=== PATIENT | male | born 1990 | race Caucasian/White ===

== ENCOUNTER → 2018-08-02 | Emergency (ER) | payer OTHER ==
[2018-08-02 02:10] LABS: ABS Basophils 0 10^3/ul (0-0.2); ABS Eosinophils 0.1 10^3/ul (0-0.6); ABS Lymphocytes 1.9 10^3/ul (1.0-4.8); ABS Monocytes 1.1 10^3/ul (0-0.8); ABS Neutrophils 6.6 10^3/ul (1.5-7.7); ABS Nucleated RBC 0 10^3/ul; Hematocrit 47 % (42-52); Hemoglobin 16.6 g/dl (14.0-18.0); Lymphocyte % 19.9 % (25-47); Mean Corpuscular HGB Conc 35 g/dl (31-36); Mean Corpuscular Hemoglobin 31 pg (27-31); Mean Corpuscular Volume 88 fL (80-94); Nucleated Red Blood Cells % 0.1; Platelet Count 273 10^3/ul (150-450); Red Blood Count 5.37 10^6/ul (4.00-5.40); Red Cell Distribution Width 13 % (10.5-15); White Blood Count 9.7 10^3/ul (3.5-10.8)
[2018-08-02 02:26] LABS: EGFR Non-African American 84.7 (>60)
[2018-08-02 03:04] VITALS: BP 138/82
--- NOTE | 2018-08-02 03:04 | ED ---
HPI Cardiac - HPI Summary HPI Summary: Patient is a 28 y/o M w/ c/o palpitations for 30 minutes onsetting tonight [employer]. He reports this is first time experiencing these Sx, denies N/V. He reports Hx of anxiety. Patient reports he was lying in bed when Sx onset. He notes he has been experiencing anxiety about school. In room, pulse is 83, BP is 135/80. In the room, he states he is still experiencing chest palpitations and also notes a "burning feeling" in LLQ. Patient reports that he took lorazepam, 2 tabs of 1 mg less than 30 minutes ago and experienced some slight relief from medication. On triage, associated severity is rated 7/10 and nothing is noted to aggravate/ alleviate Sx. Patient also takes 20mg BID for ADHD. Home medications and allergies reviewed. - History of Current Complaint Chief Complaint: EDDysrhythmPalp Stated Complaint: HEART PALPATATIONS/CHEST DISCOMFORT Time Seen by Provider: 08/02/18 01:36 Hx Obtained From: Patient Onset/Duration: Still Present Timing: Constant - palpitations is still present Current Severity: Severe - 7/10 Pain Intensity: 7 Pain Scale Used: 0-10 Numeric - 7/10 Aggravating Factor(s): Nothing Alleviating Factor(s): OTC Meds - lorazepam Associated Signs and Symptoms: Positive: Anxiety, Palpitations, Abdominal Pain - LLQ "burning feeling". Negative: Nausea, Vomiting - Allergy/Home Medications Allergies/Adverse Reactions: Allergies Allergy/AdvReac Type Severity Reaction Status Date / Time No Known Allergies Allergy Verified 08/02/18 01:17 PMH/Surg Hx/FS Hx/Imm Hx Sensory History: Denies: Hx Legally Blind, Hx Deafness Opthamlomology History: Denies: Hx Legally Blind EENT History: Denies: Hx Deafness Infectious Disease History: No Infectious Disease History: Denies: Traveled Outside the [place] in Last 30 Days - Family History Known Family History: Negative: Blood Disorder - Social History Alcohol Use: Occasionally Substance Use Type: Reports: None Smoking Status (MU): Never Smoked Tobacco Review of Systems Positive: Palpitations Positive: Abdominal Pain - LLQ "burning feeling" . Negative: Vomiting, Nausea Positive: Anxious All Other Systems Reviewed And Are Negative: Yes Physical Exam - Summary Physical Exam Summary: VITAL SIGNS: Reviewed. GENERAL: Patient is a well-developed and nourished male who is lying comfortable in the stretcher. Patient is not in any acute respiratory distress. He is anxious appearing in the room. HEAD AND FACE: No signs of trauma. No ecchymosis, hematomas or skull depressions. No sinus tenderness. EYES: PERRLA, EOMI x 2, No injected conjunctiva, no nystagmus. EARS: Hearing grossly intact. Ear canals and tympanic membranes are within normal limits. MOUTH: Oropharynx within normal limits. NECK: Supple, trachea is midline, no adenopathy, no JVD, no carotid bruit, no c- spine tenderness, neck with full ROM. CHEST: Symmetric, no tenderness at palpation LUNGS: Clear to auscultation bilaterally. No wheezing or crackles. CVS: Regular rate and rhythm, S1 and S2 present, no murmurs or gallops appreciated. ABDOMEN: Soft, non-tender. No signs of distention. No rebound no guarding, and no masses palpated. Bowel sounds are normal. EXTREMITIES: FROM in all major joints, no edema, no cyanosis or clubbing. NEURO: Alert and oriented x 3. No acute neurological deficits. Speech is normal and follows commands. SKIN: Dry and warm Triage Information Reviewed: Yes Vital Signs On Initial Exam: Initial Vitals Temp Pulse Resp BP Pulse Ox 97.3 F 81 16 145/90 100 08/02/18 01:17 08/02/18 01:17 08/02/18 01:17 08/02/18 01:17 08/02/18 01:17 Vital Signs Reviewed: Yes Diagnostics - Vital Signs Vital Signs Temp Pulse Resp BP Pulse Ox 08/02/18 02:00 93 100 08/02/18 01:38 78 15 135/80 99 08/02/18 01:37 76 17 99 08/02/18 01:17 97.3 F 81 16 145/90 100 - Laboratory Lab Results: Lab Results 08/02/18 08/02/18 Range/Units 01:51 01:51 WBC 9.7 (3.5-10.8) 10^3/ul RBC 5.37 (4.00-5.40) 10^6/ul Hgb 16.6 (14.0-18.0) g/dl Hct 47 (42-52) % MCV 88 (80-94) fL MCH 31 (27-31) pg MCHC 35 (31-36) g/dl RDW 13 (10.5-15) % Plt Count 273 (150-450) 10^3/ul MPV 8.0 (7.4-10.4) um3 Neut % (Auto) 68.0 (38-83) % Lymph % (Auto) 19.9 L (25-47) % Lipscomb % (Auto) 10.9 H (0-7) % Eos % (Auto) 1.0 (0-6) % Baso % (Auto) 0.2 (0-2) % Absolute Neuts (auto) 6.6 (1.5-7.7) 10^3/ul Absolute Lymphs (auto) 1.9 (1.0-4.8) 10^3/ul Absolute Monos (auto) 1.1 H (0-0.8) 10^3/ul Absolute Eos (auto) 0.1 (0-0.6) 10^3/ul Absolute Basos (auto) 0 (0-0.2) 10^3/ul Absolute Nucleated RBC 0 10^3/ul Nucleated RBC % 0.1 Sodium 137 (135-145) mmol/L Potassium 3.6 (3.5-5.0) mmol/L Chloride 101 (101-111) mmol/L Carbon Dioxide 29 (22-32) mmol/L Anion Gap 7 (2-11) mmol/L BUN 16 (6-24) mg/dL Creatinine 1.05 (0.67-1.17) mg/dL Est GFR ( Amer) 102.5 (>60) Est GFR (Non-Af Amer) 84.7 (>60) BUN/Creatinine Ratio 15.2 (8-20) Glucose 109 H (70-100) mg/dL Calcium 9.6 (8.6-10.3) mg/dL Magnesium 2.1 (1.9-2.7) mg/dL Total Bilirubin 0.70 (0.2-1.0) mg/dL AST 42 H (13-39) U/L ALT 36 (7-52) U/L Alkaline Phosphatase 54 (34-104) U/L Troponin I 0.00 (<0.04) ng/mL Total Protein 6.4 (6.4-8.9) g/dL Albumin 4.5 (3.2-5.2) g/dL Globulin 1.9 L (2-4) g/dL Albumin/Globulin Ratio 2.4 (1-3) TSH 2.27 (0.34-5.60) mcIU/mL Result Diagrams: 08/02/18 01:51 08/02/18 01:51 Lab Statement: Any lab studies that have been ordered have been reviewed, and results considered in the medical decision making process. - EKG 0208 Cardiac Rate: NL - rate of 86 BPM EKG Rhythm: Sinus Rhythm EKG Interpretation: Normal axis. Normal interval. No ischemic changes. Re-Evaluation - Re-Evaluation First Eval Re-Evaluation Time: 02:58 Comment: Discussed EKG and labs with patient. Patient will be discharged to home and follow up with PCP in 1-2 days. He is agreeable with this plan. Disposition - Course Assessment/Plan: Patient is a 28 y/o M w/ c/o palpitations for 30 minutes onsetting tonight [employer]. He reports this is first time experiencing these Sx, denies N/V. He reports Hx of anxiety. Patient reports he was lying in bed when Sx onset. He notes he has been experiencing anxiety about school. In room, pulse is 83, BP is 135/80. In the room, he states he is still experiencing chest palpitations and also notes a "burning feeling" in LLQ. Patient reports that he took lorazepam, 2 tabs of 1 mg less than 30 minutes ago and experienced some slight relief from medication. On physical exam, patient is noted to be anxious-appearing with no other abnormal findings. EKG showed no abnormal findings. Labs showed 109 glucose, AST 42, and globulin 1.9. Patient will be discharged to home and follow up with PCP in 1-2 days. He is agreeable with this plan. He was diagnosed with anxiety. - Diagnoses Provider Diagnoses: Anxiety Discharge - Sign-Out/Discharge Documenting (check all that apply): Patient Departure - discharge - Discharge Plan Condition: Stable Disposition: HOME Patient Education Materials: Anxiety (ED) Referrals: [facility] [Outside] - 2 Days Additional Instructions: RETURN TO ED FOR ANY CHANGING OR WORSENING SYMPTOMS. FOLLOW UP WITH PRIMARY CARE PHYSICIAN IN 1-2 DAYS. - Attestation Statements Document Initiated by Scribe: Yes Documenting Scribe: Fuad Pinedo Provider For Whom Scribe is Documenting (Include Credential): Amy Tuttle MD Scribe Attestation: I, Fuad Pinedo, scribed for Amy Tuttle MD on 08/02/18 at 0347.
== END | disposition home or self-care (01) ==
LOC: ED 01:14
DX: F41.9 Anxiety disorder, unspecified (principal); F90.9 Attention-deficit hyperactivity disorder, unspecified type
CPT/HCPCS: 36415; 80053; 83735; 84443; 84484; 85025; 93005; 99282

== ENCOUNTER 2019-06-05 03:00 | Emergency (ER) | payer OTHER ==
--- NOTE | 2019-06-05 03:17 | ED ---
Palpitations / Dysrhythmia - HPI Summary HPI Summary: This patient is a 28 year old M presenting to ED with a chief complaint of heart racing since one hour [employer]. Patient was lying in bed. He has experienced this before one time during an anxiety episode. He states he is currently also stressed about school. Patient reports still feeling like his heart is racing in the room. Patient had a glass of wine at dinner. He took Viagra earlier today. He has run out of his Lorazepam subscription. The patient rates the pain 0/10 in severity. Symptoms aggravated by nothing. Symptoms alleviated by nothing. Patient denies SOB, CP. - History of Current Complaint Chief Complaint: EDDysrhythmPalp Hx Obtained From: Patient Onset/Duration: Sudden Onset, Lasting Hours - 1 hour, Still Present Severity Initially: Mild Severity Currently: Mild Character: Fast Aggravating: Nothing Alleviating: Nothing Associated Signs & Symptoms: Negative - CP, SOB Related History: Similar Episode/Dx as - Previous anxiety - Allergy/Home Medications Allergies/Adverse Reactions: Allergies Allergy/AdvReac Type Severity Reaction Status Date / Time No Known Allergies Allergy Verified 08/02/18 01:17 PMH/Surg Hx/FS Hx/Imm Hx Sensory History: Denies: Hx Legally Blind, Hx Deafness Opthamlomology History: Denies: Hx Legally Blind Psychiatric History: Reports: Hx Anxiety Infectious Disease History: No Infectious Disease History: Denies: Traveled Outside the [place] in Last 30 Days - Family History Known Family History: Negative: Blood Disorder - Social History Alcohol Use: Occasionally Hx Substance Use: No Substance Use Type: Reports: None Hx Tobacco Use: No Smoking Status (MU): Never Smoked Tobacco Review of Systems Positive: Palpitations. Negative: Chest Pain Negative: Shortness Of Breath All Other Systems Reviewed And Are Negative: Yes Physical Exam - Summary Physical Exam Summary: Appearance: Well-appearing, Well-nourished, lying in bed comfortable Skin: Warm, dry, no obvious rash Eyes: sclera anicteric, no conjunctival pallor ENT: mucous membranes moist Neck: deferred Respiratory: No signs of respiratory distress Cardiovascular: Appears well perfused, pulses are nml Abdomen: deferred Musculoskeletal: Moving all 4 extremities without obvious discomfort Neurological: Awake and alert, mentation is normal, speech is fluent and appropriate Psychiatric: affect is normal, does not appear anxious or depressed Triage Information Reviewed: Yes Vital Signs On Initial Exam: Initial Vitals Temp Pulse Resp BP Pulse Ox 98.7 F 67 18 139/73 97 06/05/19 03:02 06/05/19 03:02 06/05/19 03:02 06/05/19 03:02 06/05/19 03:02 Vital Signs Reviewed: Yes Diagnostics - Vital Signs Vital Signs Temp Pulse Resp BP Pulse Ox 06/05/19 03:02 98.7 F 67 18 139/73 97 - Laboratory Lab Statement: Any lab studies that have been ordered have been reviewed, and results considered in the medical decision making process. - EKG 0310 Cardiac Rate: NL - 71 BPM EKG Rhythm: Sinus Rhythm ST Segment: Normal Ectopy: None Summary of EKG Findings: NSR at 71 BPM, P waves, QRS complex, and T waves are within normal limits, T waves and intervals are normal, no ischemic changes. This is a normal EKG. Course/Dx - Course Course Of Treatment: This patient is a 28 year old M presenting to ED with a chief complaint of heart racing since one hour [employer]. EKG at 0310 revealed NSR at 71 BPM, P waves, QRS complex, and T waves are within normal limits, T waves and intervals are normal, no ischemic changes. In the ED course, patient received Ativan. This is a normal EKG. Patient will be discharged home with dx of anxiety. Patient understands and agrees with this plan. - Diagnoses Provider Diagnoses: Anxiety Discharge - Sign-Out/Discharge Documenting (check all that apply): Patient Departure - Discharge Patient Received Moderate/Deep Sedation with Procedure: No - Discharge Plan Condition: Good Disposition: HOME Prescriptions: LORazepam TAB(*) [Ativan 1 MG TAB (*)] 1 mg PO Q6H PRN #12 tab MDD 4 PRN Reason: Anxiety Patient Education Materials: Anxiety (ED), Anxiolysis in Adults (ED) [facility] [Outside[facility] - As Soon As Possible - Attestation Statements Document Initiated by Scribe: Yes Documenting Scribe: Rui Nolan Provider For Whom Scribe is Documenting (Include Credential): Jalen Taylor MD Scribe Attestation: Rui Suh, scribed for Jalen Taylor MD on 06/05/19 at 0332. Status of Scribe Document: Ready
[2019-06-05] MEDS ORDERED: LORazepam TAB(*) 1 MG PO ONE (03:18)
[2019-06-05 03:34] VITALS: BP 132/76
== END 2019-06-05 03:40 | disposition home or self-care (01) ==
LOC: ED 03:00
DX: F41.9 Anxiety disorder, unspecified (principal)
CPT/HCPCS: 93005; 99282; A9270-GY